=== PATIENT | male | born 1990 | race Caucasian/White ===

== ENCOUNTER 2021-05-27 13:16 | Outpatient (REF) | payer MEDICARE, MEDICAID, SELFPAY | END 2021-05-27 13:17 | disposition home or self-care (01) | LOC: HO.LAB 13:16 | PROVIDERS: Visit Provider Internal Medicine | DX: Z20.822 Contact with and (suspected) exposure to COVID-19 (principal) | CPT/HCPCS: C9803; U0003; U0005 ==

== ENCOUNTER 2021-07-08 13:22 | Outpatient (REF) | payer MEDICARE, MEDICAID, SELFPAY | END 2021-07-08 13:23 | disposition home or self-care (01) | LOC: HO.LAB 13:22 | PROVIDERS: Visit Provider Internal Medicine | DX: Z13.89 Encounter for screening for other disorder (principal) ==

== ENCOUNTER 2021-11-13 16:50 | Emergency (ER) | payer OTHER, SELFPAY ==
--- NOTE | ~2021-11-13 | XR_ITS ---
EXAMINATION: XR FOOT, RIGHT CLINICAL INFORMATION: Pain COMPARISON: None TECHNIQUE: AP, lateral, and oblique views of the right foot. FINDINGS: Bones of the midfoot are well aligned. No tarsal, metatarsal or phalangeal fracture. Minimal soft tissue swelling laterally at the level of the fifth MTP joint. No ankle joint effusion. XR/XR foot RT 2V IMPRESSION: No fracture.
[2021-11-13 18:06] VITALS: BP 138/65; PULSE 89; RESP 16; TEMP 36.7; O2SAT 98; BMI 36.0
--- NOTE | 2021-11-13 20:23 | ED.EXTPRO ---
HPI - Extremity Problem General Chief complaint: Extremity Problem Stated complaint: r foot pain quest fb in foot glass Time Seen by Provider: 11/13/21 20:15 Source: patient Mode of arrival: ambulatory Limitations: no limitations History of Present Illness HPI Narrative: This is a 31-year-old male presenting to the emergency department with right-sided foot pain x1 month progressively worsening over the past few days. Patient tells me that a few months ago he had a glass stuck in his foot tells me he thinks he removed most of it however he is unsure if there is still glass in his foot. He reports that lately the pain to his foot has been bothering him, it is worse with ambulation. He tells me at times he feels a burning/stabbing sensation to the lateral aspect of his right foot. He thinks it is from left over glass. He reports today he soaked his foot in Epsom salt. He also reports that he has been picking at the area and trying to cut into it to get the foreign body. The area is warm and red according to patient. He denies fevers, chills, numbness, tingling, chest pain, shortness of. MD Complaint: extremity pain (Right foot ) Onset (ago): month(s) (1) Pain Consistency: constant Location: right Quality: burning and stabbing Radiation: none Relieving factors: nothing Exacerbating factors: nothing Associated symptoms: denies other symptoms Related Data Previous Rx's Medication Instructions Recorded cephalexin 500 mg tablet 500 mg PO Q6H 7 Days #28 tab 11/13/21 doxycycline hyclate 100 mg capsule 100 mg PO BID 7 Days #14 cap 11/13/21 Allergies Allergy/AdvReac Type Severity Reaction Status Date / Time Unable to Assess Allergy Unverified 11/13/21 20:41 Review of Systems Review of Systems: Constitutional : No Weight loss, No Fever, No Chills, No Fatigue, No Malaise ENT/Mouth : No sore throat, No Rhinorrhea Eyes: No Eye Pain, No Swelling, No Redness Cardiovascular : No Chest Pain, No SOB, No Dyspnea on Exertion, No Orthopnea, No Edema, No Palpitations Respiratory : No Cough, No Sputum, No Wheezing Gastrointestinal : No Nausea, No Vomiting, No Diarrhea, No Constipation, No abdominal Pain, No Hematochezia, No Melena Genitourinary : No Dysuria, No Urinary Frequency, No Hematuria, Musculoskeletal : + joint pain, No Myalgias, No Joint Swelling Skin : No Skin Lesions, No rash Neuro : No Weakness, No Numbness, No Dizziness, No Headache Psych : No Anxiety/Panic, No Depression All other systems reviewed and are negative Yes all other systems are reviewed and are negative [facility] Past Medical History Attestation statement: The following information was validated with the patient. Source: old records reviewed and nursing notes reviewed Medical History No known health problems Social History Social History Advance Directives: No Advance Directives Information Provided: Yes Physical Exam Vital Signs: Vital Signs: Last Vital Signs Temp 98.1 F 11/13/21 18:06 Pulse 89 11/13/21 18:06 Resp 16 11/13/21 18:06 BP 138/65 11/13/21 18:06 Pulse Ox 98 11/13/21 18:06 BMI result Body Mass Index 36.0 VSS Appearance: Alert.? Oriented X3.? No acute distress.? Head: Normocephalic, atraumatic, no step-offs or deformities Eyes: Pupils equal, round and reactive to light.? ENT: Pharynx normal.? Neck: Normal inspection.? Neck supple.? CVS: Normal heart rate and rhythm.? Pulses normal.? Respiratory: No respiratory distress.? Breath sounds normal.? Abdomen: Soft and nontender.? Skin: Skin warm and dry.? Normal skin color.? Normal skin turgor.?+ wound to right lateral aspect of foot. Warm and slightly erythema. Extremities: No lower extremity edema.? No calf ttp. 5/5 strength to bilateral upper and lower extremities Back: No midline tenderness, no C-spine tenderness, full range of motion, no CVA tenderness bilaterally Neuro: Oriented X 3.? No motor deficit.? No sensory deficit. CN 2-12 intact Course Reevaluation(s) Reevaluation #1: X-ray of the right foot with no fracture evident foreign bodies. Time: 20:25 Reevaluation #2: patient will be given crutches in, Toradol for pain, and started on antibiotics. I educated patient that because the glasses a foreign body it is likely that it will not be seen on x-ray so there is a possibility of retained foreign body. Advised him to soak his extremity in Epson salt, follow-up with general surgery if discomfort/ pain continues in the next week or 2. At this time I feel comfortable with discharge home Time: 20:45 MDM - Extremity (Nontraumatic) MDM Narrative Medical decision making narrative: 2023 31-year-old male presents with right foot pain and question foreign body in right foot and x1 month. Patient up-to-date on tetanus shot Physical exam significant for wound to right lateral aspect of foot. Warm and slightly erythema. plan at this time is imaging. Medical Records Attestation: I reviewed the patient's medical records. Lab Data Attestation: I reviewed the patient's lab results. Critical Care Time Critical Care Time Critical Care Time: No Discharge Plan Discharge Clinical Impression: Foot pain, right, Retained foreign body Patient Disposition: Home, Self-Care Additional Instructions: Take your medications as prescribed. If you were prescribed antibiotics today, it is important that you take your medication to their entirety, do not skip any doses, do not finish them early. Follow-up with your primary care provider this week. Return to the emergency department with new or worsening symptoms. Such as fevers, chills, chest pain, shortness of breath, nausea, vomiting, dizziness, headache, vision changes, lethargy, numbness, tingling, loss of sensation Soak your foot in Epsom salt. Do not pick at the wound! In case of emergency call 911 If symptoms persist within a week or 2, please follow up with General Surgery. Follow up with podiatry (foot doctor) as soon as possible: [facility] [address] [place] [id number] Prescriptions: New cephalexin 500 mg tablet 500 mg PO Q6H 7 Days Qty: 28 0RF doxycycline hyclate 100 mg capsule 100 mg PO BID 7 Days Qty: 14 0RF Referrals: [facility] [Primary Care Provider] - 2 days Allan Corley MD [Physician] - 2 weeks Stand Alone Forms: Work/School Release
[2021-11-13] MEDS: Ketorolac Tromethamine 30 MG/ML VIAL IM (21:19)
[2021-11-13] MEDS: cephALEXin 500 MG CAPSULE PO (21:19)
== END 2021-11-13 21:44 | disposition home or self-care (01) ==
PROVIDERS: Emergency Provider Internal Medicine
DX: M79.5 Residual foreign body in soft tissue (principal); M79.671 Pain in right foot
CPT/HCPCS: 73620; 96372; 99283; J1885

== ENCOUNTER 2025-01-20 14:19 | Inpatient (IN) | payer OTHER, SELFPAY ==
--- NOTE | ~2025-01-20 | CT_ITS ---
CLINICAL HISTORY: abd cellulitis, induration, r o abscess CT abdomen and pelvis with contrast Comparison: None available Findings: No consolidation at the lung bases. Unremarkable gallbladder and bladder. Hepatic steatosis. Bilateral renal subcentimeter low attenuating lesions which are too small to characterize. The other solid organs are unremarkable. No bowel wall thickening or dilation. A normal appendix is identified. Normal vasculature. No ascites. Moderate-sized fat containing umbilical hernia No acute osseous abnormality. Skin thickening and infiltration of the subcutaneous fat along the pannus, most prominent in the right lower quadrant. No rim enhancing fluid collection. Adjacent lymph nodes in the groin are enlarged, measuring up to 1.4 cm in short axis. Impression: Cellulitis of the pannus. No abscess. This document has been electronically signed by: Fiorella Sahu MD on 01/20/2025 18:48:56
--- NOTE | 2025-01-20 14:21 | ED.GENADULT ---
[facility] - General Adult General Chief complaint: Skin/Abscess/Foreign Body Stated complaint: cyst Time Seen by Provider: 01/20/25 15:48 Source: patient and RN notes reviewed Mode of arrival: ambulatory Limitations: no limitations History of Present Illness ED Provider: Stephanie Jc PA-C [facility] narrative: This is a 34-year-old male, with no known medical problems, who presents emergency department with concerns of abdominal wall redness. Patient states that he has had recurrent episodes of cellulitis, over the course of this last year. He states that over the last month he has had increased redness, swelling, and pain. He states that he was seen and was placed on an antibiotic for a month. Symptoms did not improve and went to an urgent care where he is been taking another antibiotic however his symptoms have not improved. He is unsure what antibiotics he has been on. He denies any fevers or chills. Denies any drainage to the area. He states that he has a history of these abscesses in the past however states that he has not had cellulitis or abscess to this extent. He denies any redness or swelling going into the testicular region. No other complaints or concerns at this time. MD complaint: Abdominal wall cellulitis Onset (ago): day(s) Location: abdomen Radiation: non-radiation Quality: burning Pain Consistency: constant Relieving factors: none Exacerbating factors: none Associated symptoms: denies other symptoms Treatments prior to arrival: none Related Data Home Medications ?Medication ?Instructions ?Recorded ?Confirmed clindamycin phosphate 1 % topical 1 appl topical DAILY PRN irritated 01/20/25 01/20/25 solution skin clonidine HCl 0.1 mg tablet 0.1 mg PO DAILY 01/20/25 01/20/25 hydroxyzine HCl 25 mg tablet 25 mg PO TID 01/20/25 01/20/25 oxcarbazepine 600 mg tablet 600 mg PO DAILY 01/20/25 01/20/25 sertraline 100 mg tablet 100 mg PO DAILY 01/20/25 01/20/25 Allergies Allergy/AdvReac Type Severity Reaction Status Date / Time No Known Allergies Allergy Verified 01/20/25 14:23 Review of Systems Review of Systems: Yes all other systems are reviewed and are negative Constitutional: Constitutional: Reports as per [facility] Past Medical History Attestation statement: The following information was validated with the patient. Medical History No known health problems Social History Social History Smoked in Last 30 Days: Yes Advance Directives: No Advance Directives Information Provided: No Physical Exam ED Vital Signs: Vital Signs - 24 hr 01/20/25 14:22 01/20/25 15:46 Temperature 98.3 F 98.7 F Pulse Rate 98 84 Respiratory Rate 18 16 Blood Pressure 123/64 145/88 H Pulse Oximetry 96 97 Oxygen Delivery Method Room Air Room Air BMI result Body Mass Index 49.3 Const General: cooperative, comfortable and no acute distress Orientation/consciousness: patient oriented x3 Limitations: no limitations HENMT Head: Yes normal to inspection, Yes normocephalic and Yes atraumatic Ears: hearing grossly normal bilaterally General nose exam: Normal external nose present Face and sinus: Yes normal facial exam Mouth: Normal oral and palatal mucosa present, oropharynx normal and moist mucous membranes Throat: Yes posterior oropharynx normal Eyes General: appearance normal, both eyes and all related structures Eyelids: Yes eyelids normal Conjunctivae: conjunctivae normal Sclerae: sclerae normal Pupils: Equal, round and reactive pupils present EOM: EOMs intact bilaterally Neck Neck: Yes normal visual inspection, Yes full ROM and Yes no lymphadenopathy Lymphatic: no lymphadenopathy noted Chest Chest palpation & inspection: normal inspection of the chest Resp Effort & Inspection: normal respiratory effort and able to speak in complete sentences Auscultation: clear to auscultation bilaterally, no crackles, no rales, no rhonchi and no wheezes Cardio Rate: regular rate Rhythm: regular rhythm Heart sounds: S1 normal heart sound present and S2 normal heart sound present GI Inspection: Yes normal to inspection Skin Other: Pannus with large area of induration, warmth and TTP, no drainage. Neuro General: patient oriented x3 and moves all extremities Cranial nerves: Yes Equal, round and reactive pupils present Extrem General: Yes normal to inspection Right upper extremity: normal to inspection Left upper extremity: normal to inspection Right lower extremity: normal to inspection Left lower extremity: normal to inspection Course Course Course Narrative: RME performed by Natalie Sanchez PA-C. Patient is a 34 year old assigned male at presenting to the emergency department with right groin cyst. Patient states he has gotten cysts in the area on and off and he usually gets oral antibiotics. Patient states that he was started on some recently and it is still there. Detailed physical exam and review of systems are deferred to the access clinician. Patient placed back in the waiting room pending room availability. Medications Administered Generic Name Dose Route Start Last Admin Trade Name Freq PRN Reason Stop Dose Admin Enoxaparin Sodium 40 mg 01/20/25 19:00 01/20/25 20:22 Enoxaparin Sodium 40 Mg/0.4 Ml Syringe SUBCUT 40 mg Q24H FRANCESCA Administration Oxycodone HCl 5 mg 01/20/25 18:32 01/20/25 20:25 Oxycodone Hcl Immed Release 5 Mg Tablet PO 5 mg Q4H PRN Administration Pain, Moderate(Pain Scale 4-6) Discontinued Medications Generic Name Dose Route Start Last Admin Trade Name Freq PRN Reason Stop Dose Admin Acetaminophen 1,000 mg in 100 mls @ 400 mls/hr 01/20/25 16:07 01/20/25 17:30 Ofirmev IV 01/20/25 16:21 Infused ONCE ONE Infusion Sodium Chloride 1,000 mls @ 999 mls/hr 01/20/25 16:07 01/20/25 18:19 Ns IVCONT 01/20/25 17:07 Infused .Q1H1M ONE Infusion Vancomycin HCl 2,000 mg in 500 mls @ 250 mls/hr 01/20/25 16:07 01/20/25 21:25 Vancomycin/Ns IV 01/20/25 18:06 Infused ONCE ONE Infusion Piperacillin Sod/Tazobactam 50 mls @ 100 mls/hr 01/20/25 16:07 01/20/25 17:15 Sod 3.375 gm/ Sodium Chloride IV 01/20/25 16:36 Infused ONCE ONE Infusion Iohexol 85 ml 01/20/25 17:47 01/20/25 17:47 Iohexol 350 Mg/Ml 100 Ml Infus..Btl IV 01/20/25 17:48 85 ml ONCE ONE Administration Medical Decision Making Medical Decision Making [facility] Narrative: This is a 34-year-old male, with no known medical problems, who presents emergency department with concerns of abdominal wall redness. On arrival, pt well appearing, vital signs WNL. He has area of erythema, warmth and induration. He has been on multiple courses of PO outpatient ABX but symptoms have not improved. Given failure of outpatient ABX and worsening cellulitis, pt needs to be admitted for IV abx. Will obtain labs, CT abd/pelvis also ordered to r/o underlying abscess. Plan: Labs, CT, IV abx, IV tylenol +/- admission. Course: Pt afebrile, given IV abx, lactic neg. He has leukocytosis at 15.3k with left shift, AST/ALT slightly elevated, CRP elevated at 2.6. CT revealing cellulitis, no abscess. Discusseed with Dr. Camacho, transfer of care initiated. Differential Diagnosis Differential Diagnoses: The differential diagnosis associated with the presentation includes celluliits, abscess, cyst, contact dermatitis Admission/Observation Consideration of admission/observation: Escalation of care including admission/observation considered Lab Data [facility] Lab Attestation statement: I reviewed the patient's lab results. See [facility], course 01/20/25 16:27 01/20/25 16:27 Labs: Lab Results 01/20/25 Range/Units 16:27 WBC 15.3 H (4.8-10.8) X10*3/uL RBC 4.97 (4.60-5.80) X10*6/uL Hgb 14.9 (14.0-18.0) g/dl Hct 43.1 (42.0-52.0) % MCV 86.7 (80.0-98.0) fL MCH 30.0 (27.0-33.0) pg MCHC 34.6 (31.0-36.0) g/dl RDW 12.6 (11.0-16.0) % Plt Count 279 (160-400) X10*3/uL MPV 10.5 (9.4-12.4) fL Immature Gran % (Auto) 0.3 (0.0-0.4) % Neut % (Auto) 70.1 (45-73) % Lymph % (Auto) 20.6 (20-40) % [place] % (Auto) 6.9 (2-11) % Eos % (Auto) 1.4 (0-4) % Baso % (Auto) 0.7 (0-2) % Lymph # (Auto) 3.2 (1.2-4.9) X10*3/uL [place] # (Auto) 1.1 (0.1-1.2) X10*3/uL Eos # (Auto) 0.2 (0.0-0.4) X10*3/uL Baso # (Auto) 0.1 (0.0-0.2) X10*3/uL Abs Immat Gran (auto) 0.05 H (0.00-0.03) X10*3/uL Absolute Neuts (auto) 10.7 H (2.0-8.3) x10*3/uL Absolute Nucleated RBC 0.000 (0.0-0.012) X10*3/uL Nucleated RBC % (auto) 0.0 (0.0-0.2) /100WBC ESR 12 (0-15) MM/HR Sodium 138 (135-145) mmol/L Potassium 4.1 (3.3-5.1) mmol/L Chloride 106 (96-108) mmol/L Carbon Dioxide 26 (22-29) mmol/L Anion Gap 10 L (12-20) BUN 11 (9-16) mg/dL Creatinine 0.82 (0.5-1.4) mg/dL Estim Creat Clear Calc 172.1 Estimated GFR > 60 Random Glucose 95 (60-115) mg/dL Lactic Acid 0.8 (0.5-2.0) mmol/L Calcium 9.0 (8.4-10.2) mg/dL Total Bilirubin 0.4 (0.0-1.0) mg/dL Direct Bilirubin 0.2 (0.0-0.5) mg/dL AST 40 H (5-37) U/L ALT 86 H (0-40) U/L Alkaline Phosphatase 82 (39-117) U/L C-Reactive Protein 2.63 H (< or = 0.50) mg/dL Total Protein 7.9 (6.5-8.0) g/dL Albumin 4.5 (3.5-5.0) g/dL Radiology Impression Discussion of test interpretation with radiology: I have reviewed the radiologist's reading. Radiologist Impression: [address] [id number] [address] Scan Report Signed Patient: Castillo Mcdonnell MR#: [id number] : 1990 Acct:[id number] Age/Sex: 34 / M ADM Date: 01/20/25 Loc: [facility]: Troy Camacho DO Ordering Physician: Stephanie Garvey Date of Service: 01/20/25 Procedure(s): CT abdomen pelvis w IV con Accession Number(s): [id number] cc: Stephanie Garvey; Physician,Unknown ~ Report Number: [id number]: Total DLP = 1028.00 mGy-cm CLINICAL HISTORY: abd cellulitis, induration, r o abscess CT abdomen and pelvis with contrast Comparison: None available Findings: No consolidation at the lung bases. Unremarkable gallbladder and bladder. Hepatic steatosis. Bilateral renal subcentimeter low attenuating lesions which are too small to characterize. The other solid organs are unremarkable. No bowel wall thickening or dilation. A normal appendix is identified. Normal vasculature. No ascites. Moderate-sized fat containing umbilical hernia No acute osseous abnormality. Skin thickening and infiltration of the subcutaneous fat along the pannus, most prominent in the right lower quadrant. No rim enhancing fluid collection. Adjacent lymph nodes in the groin are enlarged, measuring up to 1.4 cm in short axis. Impression: Cellulitis of the pannus. No abscess. This document has been electronically signed by: Fiorella Sahu MD on 01/20/2025 18:48:56 Discharge Plan Discharge Clinical Impression: Abdominal wall cellulitis Patient Disposition: Admitted As Inpatient Interventions: Admission Worksheet (ED) Last Done: 01/20/25 19:21
[2025-01-20 14:22] VITALS: BP 123/64; PULSE 98; RESP 18; TEMP 36.8; O2SAT 96; BMI 49.3
[2025-01-20 15:46] VITALS: BP 145/88; PULSE 84; RESP 16; TEMP 37.1; O2SAT 97
[2025-01-20 16:34] LABS: MANUAL DIFF FLAG NO
[2025-01-20 16:38] LABS: Hematocrit 43.1 % (42.0-52.0); Hemoglobin 14.9 g/dl (14.0-18.0); Imm Gran Abs Auto 0.05 X10*3/uL (0.00-0.03); Imm Gran Pct Auto 0.3 % (0.0-0.4); Lymphocytes Absolute Auto 3.2 X10*3/uL (1.2-4.9); Mean Corpuscular HGB Conc 34.6 g/dl (31.0-36.0); Mean Corpuscular Hemoglobin 30.0 pg (27.0-33.0); Mean Corpuscular Volume 86.7 fL (80.0-98.0); NRBC Abs Auto 0.000 X10*3/uL (0.0-0.012); NRBC Pct Auto 0.0 /100WBC (0.0-0.2); Platelet Count 279 X10*3/uL (160-400); Red Blood Count 4.97 X10*6/uL (4.60-5.80); White Blood Count 15.3 X10*3/uL (4.8-10.8)
[2025-01-20 16:56] LABS: Alanine Aminotransferase 86 U/L (0-40); Albumin Level 4.5 g/dL (3.5-5.0); Alkaline Phosphatase 82 U/L (39-117); Anion Gap 10 (12-20); Aspartate Amino Transferase 40 U/L (5-37); Blood Urea Nitrogen 11 mg/dL (9-16); Calcium 9.0 mg/dL (8.4-10.2); Carbon Dioxide 26 mmol/L (22-29); Chloride 106 mmol/L (96-108); Creatinine Clr Calc Pharmacy 172.1; Estimated Glomerular Filt Rate > 60; Potassium 4.1 mmol/L (3.3-5.1); Sodium 138 mmol/L (135-145); Total Protein 7.9 g/dL (6.5-8.0)
[2025-01-20] MEDS: iohexoL 350 MG/ML 100 ML INFUS..BTL 85 ML IV (17:47)
[2025-01-20] MEDS: vancomycin/NS 2,000 MG/500 ML PLAST..BAG 250 MG IV (18:17)
--- NOTE | 2025-01-20 18:35 | P.HPHOSP_ITS ---
History of Present Illness Date of Service: 01/20/25 Chief Complaint: Abdominal wall cellulitis 34-year-old male, with no known medical problems, who presents emergency department with concerns of abdominal wall redness. Patient states that he has had recurrent episodes of cellulitis, over the course of this last year. He states that over the last month he has had increased redness, swelling, and pain. He states that he was seen and was placed on an antibiotic for a month. Symptoms did not improve and went to an urgent care where he is been taking another antibiotic however his symptoms have not improved. Presents to ER having failed outpatient therapies Review of Systems 2 Review of Systems: Denies chest pain Denies shortness of breath Denies nausea vomiting diarrhea Denies fever chills PMFSH Medical History No known health problems Social History Smoked in Last 30 Days: Yes Advance Directives: No Advance Directives Information Provided: No Meds Allergies Allergy/AdvReac Type Severity Reaction Status Date / Time No Known Allergies Allergy Verified 01/20/25 14:23 Active Medications: Current Medications Acetaminophen (Acetaminophen 325 Mg Tablet) 650 mg PO Q6H PRN PRN Reason: Pain, Mild 1-3,fever,headache Calcium Carbonate (Calcium Carbonate 750 Mg Tab.Chew) 750 mg PO Q4H PRN PRN Reason: Heartburn Enoxaparin Sodium (Enoxaparin Sodium 40 Mg/0.4 Ml Syringe) 40 mg SUBCUT Q24H FRANCESCA Magnesium Hydroxide (Milk Of Magnesia 30 Ml Oral.Susp) 30 ml PO DAILY PRN PRN Reason: Constipation Melatonin (Melatonin 3 Mg Tablet) 6 mg PO BEDTIME PRN PRN Reason: Insomnia Ondansetron HCl (Ondansetron Hcl 4 Mg/2 Ml Vial) 4 mg IVPUSH Q8H PRN PRN Reason: Nausea and Vomiting Oxycodone HCl (Oxycodone Hcl Immed Release 5 Mg Tablet) 5 mg PO Q4H PRN PRN Reason: Pain, Moderate(Pain Scale 4-6) Sodium Chloride (0.9 % Sodium Chloride Flush 3 Ml Syringe) [address] [facility] Home Medications ?Medication ?Instructions ?Recorded ?Confirmed ?Last Taken ?Type clindamycin phosphate 1 % topical 1 appl topical DAILY PRN irritated 01/20/25 Unknown History solution skin clonidine HCl 0.1 mg tablet 0.1 mg PO DAILY 01/20/25 Unknown History doxycycline monohydrate 100 mg 100 mg PO BID 01/20/25 Unknown History capsule hydroxyzine HCl 25 mg tablet 25 mg PO TID 01/20/25 Un known History oxcarbazepine 600 mg tablet 600 mg PO DAILY 01/20/25 Unknown History sertraline 100 mg tablet 100 mg PO DAILY 01/20/25 Un known History Physical Exam 2 Vital Signs and Narrative: Vital Signs: Last Vital Signs Temp 98.7 F 01/20/25 15:46 Pulse 84 01/20/25 15:46 Resp 16 01/20/25 15:46 BP 145/88 H 01/20/25 15:46 Pulse Ox 97 01/20/25 15:46 O2 Del Method Room Air 01/20/25 15:46 BMI result Body Mass Index 49.3 Results Labs 01/20/25 16:27 01/20/25 16:27 Labs: Laboratory Results - last 24 hr 01/20/25 16:27 MCV 86.7 MCH 30.0 MCHC 34.6 RDW 12.6 Plt Count 279 MPV 10.5 Immature Gran % (Auto) 0.3 Neut % (Auto) 70.1 Lymph % (Auto) 20.6 [place] % (Auto) 6.9 Eos % (Auto) 1.4 Baso % (Auto) 0.7 Lymph # (Auto) 3.2 [place] # (Auto) 1.1 Eos # (Auto) 0.2 Baso # (Auto) 0.1 Abs Immat Gran (auto) 0.05 H Absolute Neuts (auto) 10.7 H Absolute Nucleated RBC 0.000 Nucleated RBC % (auto) 0.0 ESR 12 Anion Gap 10 L Estim Creat Clear Calc 172.1 Estimated GFR > 60 Random Glucose 95 Lactic Acid 0.8 Calcium 9.0 Total Bilirubin 0.4 Direct Bilirubin 0.2 AST 40 H ALT 86 H Alkaline Phosphatase 82 C-Reactive Protein 2.63 H Total Protein 7.9 Albumin 4.5 Assessment and Plan (1) Abdominal wall cellulitis: Status: Acute (2) Bipolar disorder: Qualifiers: Active/Remission status: remission status unspecified Qualified Code(s): F31.9 - Bipolar disorder, unspecified Status: Acute Plan 34-year-old male presents with abdominal cellulitis that has failed multiple regimens of outpatient antibiotics. Most recent was oral doxycycline and topical clindamycin. He presents after outpatient therapy failure 1. Abdominal wall cellulitis -vancomycin/Zosyn (1) -oxycodone as needed for pain -await blood cultures 2. Bipolar disorder -stable and well compensated -continue outpatient therapies Full code Lovenox Will require at least 2 midnights going forward of inpatient stay for IV antibiotics to treat abdominal wall cellulitis that has failed multiple outpatient therapies. This can not be achieved a lesser acute setting Quality Stroke Does the patient have a stroke diagnosis?: No VTE Prior VTE?: No VTE Risk Level:: Medical - moderate - high VTE Device Contraindication: Treatment Not Indicated VTE Drug Contraindication: N/A - Med Ordered
--- NOTE | 2025-01-20 18:58 | PHA.PROG ---
Admission Date/Time: January 20, 2025 18:08 Indication: SKIN Weight in k.9 kg Serum Creatinine - Last 168 Hours 01/20/25 16:27 Creatinine 0.82 Estimated CrCl and GFR - Last 168 Hours 01/20/25 16:27 Estim Creat Clear Calc 172.1 Estimated GFR > 60 Vancomycin Loading Dose: 2000 Current Vancomycin Dosing Regimen: 1750 Vancomycin Monitoring using AUC goal of 400 - 600 range with trough as surrogate marker: 529 Date and Time for next Vancomycin Level to be drawn: 01/22 @0600 Pharmacist Comments on Vancomycin Plan: Vancomycin dosing will take advantage of [employer] as a clinical decision support tool that uses Bayesian modeling to calculate individual patient's pharmacokinetic parameters and forecast the patient's drug concentration time course with the target goal AUC 24 range of 400 - 600 mg/L/hr.
--- NOTE | 2025-01-20 19:07 | PHA.MEDREC ---
Pharmacy Consult ? Medication Reconciliation Pharmacy has completed the medication reconciliation, spoke to patient at bedside who confirmed meds. Pt was a little hesitant and unsure, so used claims to confirm.
[2025-01-20 19:12] VITALS: BP 155/86; PULSE 81; RESP 20; TEMP 36.7; O2SAT 98
[2025-01-20] MEDS: oxyCODONE HCl Immed Release 5 MG TABLET PO (20:25)
[2025-01-20 22:06] VITALS: BP 144/67; PULSE 80; RESP 20; TEMP 36.8; O2SAT 97
[2025-01-21] MEDS: 0.9 % Sodium Chloride Flush 3 ML SYRINGE IVFLUSH ×2 (00:17→08:27)
[2025-01-21 00:32] VITALS: BP 131/60; PULSE 72; RESP 18; TEMP 36.2; O2SAT 96
[2025-01-21] MEDS: oxyCODONE HCl Immed Release 5 MG TABLET PO (01:11)
[2025-01-21 03:52] VITALS: BP 115/55; PULSE 81; RESP 20; TEMP 36.6; O2SAT 97
--- NOTE | 2025-01-21 07:09 | PC.NURSE ---
Late Entry: Patients came to sleep over in the hospital. A minor was noted to be with the , patients daughter. was sleeping in the recliner and the minor child is sleeping on the floor overnight. When asked by primary RN to leave, patient threatened to leave AMA. 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 Time Lauren 1:30am.
[2025-01-21 07:53] VITALS: BP 140/71; PULSE 72; RESP 18; TEMP 36.4; O2SAT 97
[2025-01-21 07:59] LABS: MANUAL DIFF FLAG NO
[2025-01-21 08:02] LABS: Hematocrit 43.2 % (42.0-52.0); Hemoglobin 14.6 g/dl (14.0-18.0); Imm Gran Abs Auto 0.08 X10*3/uL (0.00-0.03); Imm Gran Pct Auto 0.5 % (0.0-0.4); Lymphocytes Absolute Auto 2.6 X10*3/uL (1.2-4.9); Mean Corpuscular HGB Conc 33.8 g/dl (31.0-36.0); Mean Corpuscular Hemoglobin 29.7 pg (27.0-33.0); Mean Corpuscular Volume 87.8 fL (80.0-98.0); NRBC Abs Auto 0.000 X10*3/uL (0.0-0.012); NRBC Pct Auto 0.0 /100WBC (0.0-0.2); Platelet Count 270 X10*3/uL (160-400); Red Blood Count 4.92 X10*6/uL (4.60-5.80); White Blood Count 15.9 X10*3/uL (4.8-10.8)
[2025-01-21] MEDS: vancomycin HCL 1,000 MG, vancomycin HCL 750 MG in 0.9 % Sodium Chloride 500 ML 267.5 MG IV (08:25)
[2025-01-21 08:29] LABS: Alanine Aminotransferase 77 U/L (0-40); Albumin Level 4.2 g/dL (3.5-5.0); Alkaline Phosphatase 75 U/L (39-117); Anion Gap 12 (12-20); Aspartate Amino Transferase 37 U/L (5-37); Blood Urea Nitrogen 10 mg/dL (9-16); Calcium 8.8 mg/dL (8.4-10.2); Carbon Dioxide 22 mmol/L (22-29); Chloride 108 mmol/L (96-108); Creatinine Clr Calc Pharmacy 164.1; Estimated Glomerular Filt Rate > 60; Potassium 4.2 mmol/L (3.3-5.1); Sodium 138 mmol/L (135-145); Total Protein 7.3 g/dL (6.5-8.0)
--- NOTE | 2025-01-21 12:16 | PM.DS ---
DS: Providers Provider Date of Service: 01/21/25 Date of admission: 01/20/25 18:08 Date of discharge: 01/21/25 Primary care physician: Unknown Physician Consults: 01/21/25 00:28 Consult to Wound Care Routine Reason for consultation: abdominal cellulitis DS: Diagnosis Discharge Diagnosis (1) Abdominal wall cellulitis: Status: Acute (2) Bipolar disorder: Status: Acute DS: Summary Hospital Course Hospital Course: 34-year-old male, with no known medical problems, who presents emergency department with concerns of abdominal wall redness. Patient states that he has had recurrent episodes of cellulitis, over the course of this last year. He states that over the last month he has had increased redness, swelling, and pain. He states that he was seen and was placed on an antibiotic for a month. Symptoms did not improve and went to an urgent care where he is been taking another antibiotic however his symptoms have not improved. Presents to ER having failed outpatient therapies Hospital course Patient admitted to general medical floor and started on vancomycin and Augmentin. Over the course of the next 24 hours he noted marked improvement. At that time he wished to be discharged home as he had commitments to attend. Given the significant improvement, he is medically acceptable be discharged home at this time to follow up with his PCP. He will be discharge to complete a course of Augmentin and clindamycin p.o.. Time Attestation Discharge Coordination Time (in mins): 35 Quality: Safe Use of Opioids Does Pt have an Active Cancer Diagnosis on the Problem List?: No Quality: Stroke Does the patient have a stroke diagnosis?: No Physical Exam Vital Signs: Vital Signs: Last Vital Signs Temp 97.5 F 01/21/25 07:53 Pulse 72 01/21/25 07:53 Resp 18 01/21/25 07:53 BP 140/71 H 01/21/25 07:53 Pulse Ox 97 01/21/25 07:53 O2 Del Method Room Air 01/21/25 03:52 BMI result Body Mass Index 49.3 Const: Other: Awake alert no acute distress Resp: Other: Clear to auscultation bilaterally no rales rhonchi or wheezes Cardio: Other: No S4; positive S1-S2; no S3 murmurs rubs or gallops GI: Other: Soft nontender nondistended normoactive bowel sounds improvement in erythema lower pannus Extrem: Other: No edema bilaterally DS: Data Data Completed and Pending Labs on day of discharge: Laboratory Results - last 24 hr 01/20/25 01/21/25 16:27 07:48 WBC 15.3 H 15.9 H RBC 4.97 4.92 Hgb 14.9 14.6 Hct 43.1 43.2 MCV 86.7 87.8 MCH 30.0 29.7 MCHC 34.6 33.8 RDW 12.6 12.5 Plt Count 279 270 MPV 10.5 10.7 Immature Gran % (Auto) 0.3 0.5 H Neut % (Auto) 70.1 73.3 H Lymph % (Auto) 20.6 16.2 L [place] % (Auto) 6.9 7.6 Eos % (Auto) 1.4 1.5 Baso % (Auto) 0.7 0.9 Lymph # (Auto) 3.2 2.6 [place] # (Auto) 1.1 1.2 Eos # (Auto) 0.2 0.2 Baso # (Auto) 0.1 0.1 Abs Immat Gran (auto) 0.05 H 0.08 H Absolute Neuts (auto) 10.7 H 11.7 H Absolute Nucleated RBC 0.000 0.000 Nucleated RBC % (auto) 0.0 0.0 ESR 12 Sodium 138 138 Potassium 4.1 4.2 Chloride 106 108 Carbon Dioxide 26 22 Anion Gap 10 L 12 BUN 11 10 Creatinine 0.82 0.86 Estim Creat Clear Calc 172.1 164.1 Estimated GFR > 60 > 60 Random Glucose 95 113 Lactic Acid 0.8 Calcium 9.0 8.8 Total Bilirubin 0.4 0.9 Direct Bilirubin 0.2 AST 40 H 37 ALT 86 H 77 H Alkaline Phosphatase 82 75 C-Reactive Protein 2.63 H Total Protein 7.9 7.3 Albumin 4.5 4.2 Discharge Plan Discharge Anticipated Discharge Date/Time: 01/21/25 12:09 Patient Disposition: Home, Self-Care Discharge Diagnosis: Abdominal wall cellulitis Referrals: Physician,Unknown J [Primary Care Provider, Medical] - 1 Week Discharge Medications: New amoxicillin-pot clavulanate 875-125 mg tablet 1 tab PO BID Qty: 10 0RF clindamycin HCl [Cleocin HCl] 300 mg capsule 300 mg PO TID 10 Days Qty: 30 0RF Continued clonidine HCl 0.1 mg tablet 0.1 mg PO DAILY sertraline 100 mg tablet 100 mg PO DAILY oxcarbazepine 600 mg tablet 600 mg PO DAILY hydroxyzine HCl 25 mg tablet 25 mg PO TID Discontinued clindamycin phosphate 1 % solution 1 appl topical DAILY PRN (Reason: irritated skin) Discharge Orders: Discharge Order (Routine); Ordered 01/21/25 Ordered By: Troy Camacho Diet: Advance to usual diet Activity on Discharge: As tolerated Stand Alone Forms: Patient Portal Discharge page Print Language: Spanish Care Plan Goals: Augmentin 875 twice daily times 10 days along with clindamycin 300 mg 3 times a day has been sent to your pharmacy. Take these medicines with food and complete them as ordered Health Concerns: You may stop the role on clindamycin Plan of Treatment: Resume all other medicines as taken prior to hospital and follow up with the PCP next available Assessment: See discharge summary
--- NOTE | 2025-01-21 12:51 | MHC.CM.PN ---
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 DC HOME TODAY WITH NO SERVICES VIA PRIVATE TRANSPORT
== END 2025-01-21 12:26 | disposition home or self-care (01) | DRG 603 ==
LOC: HO.ED 15:59 → HO.EDOVER 18:31 → HO.S3 23:38
PROVIDERS: Physician Assistant Medical; Admitting Provider Hospitalist; Emergency Provider Emergency Medicine; Visit Provider Hospitalist
DX: L03.311 Cellulitis of abdominal wall (principal); F31.9 Bipolar disorder, unspecified; Z79.899 Other long term (current) drug therapy
CPT/HCPCS: 36415; 74177; 80048; 80053; 80076; 83605; 85025; 85652; 86140; 87040; 99285; J0131; J1650; J2543; J3373; J3374; Q9967

== ENCOUNTER → 2025-01-20 16:07 | Outpatient (BNV) | payer OTHER, SELFPAY | PROVIDERS: Admitting Provider Hospitalist; Emergency Provider Emergency Medicine; Visit Provider Radiology Diagnostic Radiology | DX: L03.311 Cellulitis of abdominal wall (principal) | CPT/HCPCS: 74177 ==

== ENCOUNTER → 2025-01-20 18:08 | Outpatient (BNV) | payer OTHER, SELFPAY | PROVIDERS: Admitting Provider Hospitalist; Emergency Provider Emergency Medicine; Visit Provider Hospitalist | DX: L03.311 Cellulitis of abdominal wall (principal); F31.9 Bipolar disorder, unspecified | CPT/HCPCS: 99223; 99239 ==